=== PATIENT | female | born 1965 | race Two or more races ===

== ENCOUNTER 2016-04-06 13:38 | Emergency (ER) | payer OTHER ==
[~2016-04-06] VITALS: Ht 157.5 cm; Wt 86.8 kg
[~2016-04-06 13:38] MED LIST: BACTRIM,SEPT1 TABLET PO; PERCOCET 5/31 TABLET PO; QUETIAPINE FUM100 MG PO; RANITIDINE HCL150 MG PO
[2016-04-06] MEDS ORDERED: PERCOCET 5/31 TABLET PO (16:12)
[2016-04-06] MEDS ORDERED: KEFLEX500 MG PO (16:12)
[2016-04-06] MEDS ORDERED: BACTRIM,SEPT1 TABLET PO (16:12)
[2016-04-06 16:36] VITALS: BP 117/94
== END 2016-04-06 16:38 | disposition home or self-care (01) ==
LOC: EME 13:38
PROC: 0H98XZZ Drainage of Buttock Skin, External Approach (ICD-10-PCS; principal; 2016-04-06)
DX: L05.01 Pilonidal cyst with abscess (principal)
CPT/HCPCS: 99281; 99284